=== PATIENT | female | born 1960 | race Caucasian/White ===

== ENCOUNTER 2017-11-14 16:08 | Emergency (ER) | payer MEDICAID ==
[~2017-11-14] VITALS: Ht 172.7 cm; Wt 79.2 kg
[~2017-11-14 16:08] MED LIST: AMIT-189 PO; GABA300C PO; IBUP-1984 PO
[2017-11-14 16:10] VITALS: BP 151/89
[2017-11-14] MEDS ORDERED: CEPH-571 PO (16:27)
== END 2017-11-14 16:51 | disposition home or self-care (01) ==
LOC: ER 16:08
DX: L60.0 Ingrowing nail (principal); Z90.710 Acquired absence of both cervix and uterus; Z98.890 Other specified postprocedural states
CPT/HCPCS: 99283